=== PATIENT | female | born 1975 | race Hispanic/Latino ===

== ENCOUNTER 2018-03-09 13:07 | Emergency (ER) | payer OTHER ==
[~2018-03-09] VITALS: Ht 154.9 cm; Wt 73.9 kg
--- OUTSIDE RECORDS SUMMARY | 2018-03-09 13:09 | XMS REPORT | Clinical Summary ---
Author Author [facility] Address Unknown Phone Unavailable Care Team Providers Care Assistant Director Of Admissions Name Role Phone Sharpless PCP Allergies No Known Allergies Medications End Date Status Medication Sig Dispensed Refills Start Date Active atorvastatin (LIPITOR) 40 Take 40 mg by 0 MG tablet mouth daily. Active glimepiride (AMARYL) 4 MG Take 8 mg by 0 tablet mouth every morning before breakfast. Active lisinopril Take 15 mg by 0 (PRINIVIL,ZESTRIL) 10 MG mouth daily. tablet Active metFORMIN (GLUCOPHAGE) Take 1,000 mg 0 500 MG tablet by mouth 2 (two) times daily with breakfast and dinner. Active omeprazole (PRILOSEC) 20 Take 20 mg by 0 MG capsule mouth daily. Active Problems Problem Noted Date Chronic cholecystitis 02/11/2016 Renal mass 02/11/2016 Social History Date Tobacco Use Types Packs/Day Years Used Quit: 01/28/2016 Former Smoker 0.25 1 Smokeless Tobacco: Never Used Comments: Has been previously been educated regarding smoking cessation Alcohol Use Drinks/Week oz/Week Comments Yes occasional Sex Assigned at Date Recorded Not on file Industry Job Start Date Occupation Not on file Not on file Not on file Travel End Travel History Travel Start No recent travel history available. Last Filed Vital Signs Not on file Plan of Treatment Not on file Implants Device Identifier Shelf Expiration Date Model / Serial / Lot Implanted Type Area Manufactur er 06/07/2017 [id number] / / [id number] Matrix Floseal Hemo W/O Ndl 10 Cement/Arnulfo Left: Kidney LUCAS:BIO [id number] - [id number] ler/Adhesi SCI Implanted: Qty: 1 on 02/11/2016 by Lars Crowder MD Results Not on fileafter 03/08/2017 Insurance Payer Benefit Subscriber ID Type Phone Address Plan / Group [facility] xxxxxxxxxxxx HMO/POS [phone] [employer]KT[employer] EXCHANGE Advance Directives For more information, please contact: [place]yn [place] [phone] [place] [address] Date Inactivated Comments Code Status Date Activated 02/13/2016 8:37 PM Full Code 02/11/2016 6:18 AM This code status was determined by: Patient
[2018-03-09] MEDS ORDERED: FAMOTIDINE 20 MG/2 ML VIAL IV STA (13:24)
[2018-03-09] MEDS ORDERED: METHYLPREDNISOLONE SOD SUCC 125 MG/2ML VIAL IV ONE (13:30)
[2018-03-09] MEDS ORDERED: DIPHENHYDRAMINE HCL INJ 50 MG/ML VIAL IV ONE (13:30)
[2018-03-09] MEDS ORDERED: DIPHENHYDRAMINE HCL 25 MG CAP PO ONE (13:45)
[2018-03-09] MEDS ORDERED: FAMOTIDINE 20 MG TAB PO ONE (13:45)
[2018-03-09] MEDS ORDERED: PREDNISONE20 MG PO (13:52)
== END 2018-03-09 14:11 | disposition home or self-care (01) ==
LOC: ER 13:07
DX: T78.40XA Allergy, unspecified, initial encounter (principal); I10 Essential (primary) hypertension; E11.9 Type 2 diabetes mellitus without complications; E78.5 Hyperlipidemia, unspecified
CPT/HCPCS: 99283; J2930; J1200